=== PATIENT | female | born 1970 | race Caucasian/White ===

== ENCOUNTER → 2025-03-19 15:43 | Outpatient (CLI) | payer BC, SELFPAY ==
--- NOTE | 2025-03-19 15:46 | DI.US.S_ITS ---
PROCEDURE: US PELVIC COMPLETE INDICATIONS: Postmenopausal bleeding TECHNIQUE: Real-time scanning was performed of the pelvic organs, with image documentation. Additional endovaginal scanning was necessary due to incomplete visualization of the adnexal and endometrial structures by transabdominal scanning. COMPARISON: None. FINDINGS: Uterus: Uterus is anteverted and normal in size at 6.7 x 4.7 x 3.9 cm. The myometrium is heterogeneous. The endometrium measures 1.8 mm combined thickness. Ovaries: The right ovary measures 2.3 x 1.6 x 1.1 cm, with a calculated ovarian volume of 2.1 cc. Simple right ovarian cyst measuring 1.5 cm. The left ovary measures 2.0 x 1.2 x 1.4 cm, with a calculated ovarian volume of 0.8 cc. Less than 12 follicles can be seen in each ovary. No adnexal masses are seen. Other: No pathologic free abdominal or pelvic fluid. IMPRESSION: Endometrium is normal in thickness measuring 1.8 mm. Right ovarian cyst measuring 1.5 cm. Given postmenopausal status, 6-12 week follow-up ultrasound is recommended. We strive to produce accurate, complete, and clear reports of imaging services. To assist us in improving patient care, this report was composed using standard report templates and voice recognition software. Therefore, it may contain abnormal punctuation, insertions and/or omissions. Occasional wrong-word or sound-alike substitutions may occur. Though we review the report and make efforts to correct it, we do recommend that the report be read carefully in proper context to recognize any text inaccuracies. Dictated by: Mick Jewell M.D. on 03/19/2025 at 21:27 Approved by: Mick Jewell M.D. on 03/19/2025 at 21:28
== END ==
LOC: US 15:45
PROVIDERS: Family Provider Family Medicine Geriatric Medicine; PCP Naturopath; Referring Provider Obstetrics & Gynecology; Visit Provider Naturopath
DX: N95.0 Postmenopausal bleeding (principal); N83.291 Other ovarian cyst, right side
CPT/HCPCS: 76830; 76856